=== PATIENT | female | born 1955 | race Caucasian/White ===

== ENCOUNTER 2018-06-30 08:42 | Observation (INO) ==
[2018-06-30] MEDS ORDERED: Acetaminophen 325 MG TABLET PO ONE (08:47)
--- NOTE | 2018-06-30 08:52 | Emergency Department Note ---
Disposition Clinical Impression: Viral syndrome, Elevated troponin Disposition: Admitted As Inpatient Condition: Fair Time of Disposition: 10:41 Weakness HPI - General Stated complaint: flu symptoms Time Seen by Provider: 06/30/18 08:47 Source: patient, EMS Mode of arrival: EMS Limitations: no limitations Nursing Notes Reviewed: Yes Vital Signs Reviewed: Yes - History of Present Illness HPI Narrative: Patient presents to the ED with chief complaint of generalized weakness. States it is been ongoing for about 3 weeks. She also complains of right hip pain. She denies any fever or chills. Denies any chest pain. She has had a productive cough but that is not any different than usual from her baseline e mphysema. She is on 2.5 L of oxygen at all times. Has not been needing more than usual. States she just feels very rundown and tired. She has had decreased appetite and body aches. According to EMS, she had a temperature of 100.6 and was mildly hypoxic, but she was not wearing her oxygen. She states she has a history of emphysema but is otherwise healthy. - Related Data Home Medications Medication Instructions Recorded Confirmed Budesonide/Formoterol 160/4.5 2 puff IH BIDR 07/23/16 08/09/16 [Symbicort 160/4.5] Calcium Carbonate/Vitamin D3 1 each PO DAILY 07/23/16 08/09/16 [Calcium 500 + Vit D Caplet] Cholecalciferol (D-3) [Vitamin D] 1,000 unit PO DAILY 07/23/16 08/09/16 Gabapentin [Neurontin] 300 mg PO TID 07/23/16 08/09/16 Glucosamn/Condroitn/C/Mn/[place] 1 each PO DAILY 07/23/16 08/09/16 [Cvs Glucosamine Chondroit Cplt] Linaclotide [Linzess] 290 mcg PO DAILY 07/23/16 08/09/16 Meloxicam 15 mg PO DAILY 07/23/16 08/09/16 OLANZapine [Zyprexa] 25 mg PO HS 07/23/16 08/09/16 [place]-3/Dha/Epa/Fish Oil [Fish Oil 1 each PO DAILY 07/23/16 08/09/16 1,000 mg Softgel] Terbutaline [Brethine] 2.5 mg PO TID 07/23/16 08/09/16 Trazodone HCl 200 mg PO HS 07/23/16 08/09/16 Bifidobacterium Infantis [Align] 07/11/17 Combivent Respimat Inhal [place] 07/11/17 ROLLATOR 07/11/17 Tizanidine HCl [Zanaflex] 07/11/17 Previous Rx's Medication Instructions Recorded Phenylephrine HCl/Prometh HCl 5 - 10 ml PO QID PRN #180 syrup 07/11/17 [Promethazine-Phenylephrine Syr] Nitrofurantoin (BID) [Macrobid] 100 mg PO BID #20 capsule 12/01/17 Ciprofloxacin [Cipro] 500 mg PO BID #10 tablet 04/05/18 Cyclobenzaprine [Flexeril] 5 mg PO HS #3 tablet 06/21/18 Meloxicam 7.5 mg PO DAILY #7 tablet 06/21/18 predniSONE [PredniSONE] 20 mg PO BID #10 tablet 06/21/18 Allergies Allergy/AdvReac Type Severity Reaction Status Date / Time aripiprazole [From Abilify] AdvReac Hallucinati Verified 06/21/18 12:50 ng Review of Systems: As reviewed in the HPI. All other systems reviewed are negative or normal. Past Medical History - Past Medical History Attestation: Yes The following information was validated with the patient. Source: patient Medical history: Reports: COPD, other Surgical history: Reports: breast surgery, hysterectomy, orthopedic, other Psychiatric history: Reports: bipolar, schizophrenia - Social History Smoking Status: Never smoker Smokeless Tobacco Status: No Alcohol use: Reports: none Drug use: Reports: none Physical Exam CONSTITUTIONAL: [well appearing, alert and in no acute distress] EYES: [EOMI, clear conjunctiva, PERRLA] HENT: [Normocephalic, atraumatic, moist mucus membranes, normal oropharynx] NECK: [normal inspection, full ROM, trachea midline, no obvious swelling] PULMONARY: Rhonchi bilaterally CARDIOVASCULAR: [regular rate, regular rhythm, normal heart sounds, no murmurs, distal extremities are warm and well perfused] GASTROINSTESTINAL: [soft, non-tender, non-rigid, non-distended, no guarding, no rebound, normal bowel sounds] GENITOURINARY/RECTAL: [deferred] NEUROLOGIC: [Alert, oriented x3, normal speech, moves all extremities] EXTREMITIES: [Normal inspection, full ROM, no tenderness, no pedal edema, normal capillary refill] MUSCULOSKELETAL: [no gross deformities, atraumatic] SKIN: [No cyanosis, no diaphoresis, normal color, warm, no rash] PSYCHIATRIC: [normal mood and affect] Course Course Narrative: Patient with mildly elevated troponin, but negative. EKG. X-ray did show right hip arthritis, which would likely be the cause of her pain. Do not think this is ACS. However, her fatigue and exertional weakness. Could be cardiac in nature, so we will admit her for further trending echocardiogram and possible stress test. Vital Signs Temperature 98.3 F 06/30/18 09:10 Pulse Rate 96 06/30/18 09:10 Respiratory Rate 18 06/30/18 09:10 Blood Pressure 139/87 06/30/18 09:10 O2 Sat by Pulse Oximetry 96 06/30/18 09:10 Temperature 98.3 F 06/30/18 09:10 Pulse Rate 96 06/30/18 09:10 Respiratory Rate 18 06/30/18 09:10 Blood Pressure 139/87 06/30/18 09:10 O2 Sat by Pulse Oximetry 96 06/30/18 09:21 Oxygen Delivery Oxygen Delivery Room Air Weakness - Medical Records Medical records reviewed: Yes I reviewed the patient's medical records. - Lab Data Lab results reviewed: Yes I reviewed the patient's lab results. Result diagrams: 06/30/18 09:16 06/30/18 09:16 Lab Results 06/30/18 06/30/18 06/30/18 Range/Units 09:16 09:16 09:16 WBC 3.8 L (4.3-11.1) K/mcL RBC 4.37 (3.82-4.97) M/mcL Hgb 13.5 (11.5-15.4) g/dL Hct 40.9 (35.3-44.9) % MCV 93.6 (83.0-100.0) fL MCH 30.9 (28.0-33.3) pg MCHC 33.0 (31.6-35.5) g/dL RDW 14.0 (11.5-14.5) % Plt Count 183 (140-400) K/mcL MPV 9.3 L (9.4-12.4) fL Immature Gran % 0.3 (0-4) % Seg Neutrophils % 73.3 % Lymphocytes % 15.0 % Monocytes % 10.6 % Eosinophils % 0.0 % Basophils % 0.8 % Neutrophils # 2.8 (1.6-8.9) K/mcL Lymphocytes # 0.6 (0.6-4.6) K/mcL Monocytes # 0.4 (0.0-1.3) K/mcL Eosinophils # 0.0 (0.0-0.6) K/mcL Basophils # 0.0 (0.0-0.2) K/mcL Sodium 141 (136-145) mEq/L Potassium 4.1 (3.5-5.1) mEq/L Chloride 109 H (98-107) mEq/L Carbon Dioxide 26 (23-29) mEq/L BUN 8 (8-23) mg/dL Creatinine 0.78 (0.60-1.20) mg/dL Est GFR ( Amer) > 60 (> 60) Est GFR (Non-Af Amer) > 60 (> 60) BUN/Creatinine Ratio 10 (6-26) Glucose 104 (70-105) mg/dL Calculated Osmolality 291 (280-300) Lactic Acid 0.8 (0.5-2.2) mmol/L Calcium 8.9 (8.6-10.3) mg/dL Creatine Kinase 34 (30-223) Units/L Troponin I 0.05 H* (< 0.04) ng/mL Urine Color (Yellow) Urine Clarity (Clear) Urine pH (5.0-8.0) pH Units Ur Specific [place] (1.010-1.025) Urine Protein (Neg-Trace) mg/dL Urine Glucose (UA) (Normal) mg/dL Urine Ketones (Negative) mg/dL Urine Blood (Negative) Urine Nitrite (Negative) Urine Bilirubin (Negative) Urine Urobilinogen (Normal) mg/dL Ur Leukocyte Esterase (Negative) Ur Culture Indicated? (NO) 06/30/18 Range/Units 09:54 WBC (4.3-11.1) K/mcL RBC (3.82-4.97) M/mcL Hgb (11.5-15.4) g/dL Hct (35.3-44.9) % MCV (83.0-100.0) fL MCH (28.0-33.3) pg MCHC (31.6-35.5) g/dL RDW (11.5-14.5) % Plt Count (140-400) K/mcL MPV (9.4-12.4) fL Immature Gran % (0-4) % Seg Neutrophils % % Lymphocytes % % Monocytes % % Eosinophils % % Basophils % % Neutrophils # (1.6-8.9) K/mcL Lymphocytes # (0.6-4.6) K/mcL Monocytes # (0.0-1.3) K/mcL Eosinophils # (0.0-0.6) K/mcL Basophils # (0.0-0.2) K/mcL Sodium (136-145) mEq/L Potassium (3.5-5.1) mEq/L Chloride (98-107) mEq/L Carbon Dioxide (23-29) mEq/L BUN (8-23) mg/dL Creatinine (0.60-1.20) mg/dL Est GFR ( Amer) (> 60) Est GFR (Non-Af Amer) (> 60) BUN/Creatinine Ratio (6-26) Glucose (70-105) mg/dL Calculated Osmolality (280-300) Lactic Acid (0.5-2.2) mmol/L Calcium (8.6-10.3) mg/dL Creatine Kinase (30-223) Units/L Troponin I (< 0.04) ng/mL Urine Color Yellow (Yellow) Urine Clarity Clear (Clear) Urine pH 8.0 (5.0-8.0) pH Units Ur Specific [place] 1.019 (1.010-1.025) Urine Protein Trace (Neg-Trace) mg/dL Urine Glucose (UA) Normal (Normal) mg/dL Urine Ketones Negative (Negative) mg/dL Urine Blood Negative (Negative) Urine Nitrite Negative (Negative) Urine Bilirubin Negative (Negative) Urine Urobilinogen Normal (Normal) mg/dL Ur Leukocyte Esterase Negative (Negative) Ur Culture Indicated? NO (NO) - Radiology Data Radiology results reviewed: Yes I reviewed the patient's radiology results. - EKG Data EKG attestation: Yes I reviewed and interpreted this EKG. EKG results narrative: Sinus rhythm, rate 87, normal axis, no ischemic change
--- NOTE | 2018-06-30 08:58 | Emergency Department Note ---
Disposition Clinical Impression: Viral syndrome Disposition: Still a Patient General Adult HPI - General Stated complaint: flu symptoms Time Seen by Provider: 06/30/18 08:47 Source: patient, EMS Mode of arrival: EMS Limitations: no limitations Nursing Notes Reviewed: Yes Vital Signs Reviewed: Yes - History of Present Illness HPI Narrative: ED attending attestation note: I examined this patient and my medical decision-making was reviewed with the emergency medicine resident Ochoa Glass. I agree with the documented findings, disposition and treatment plan as described except to the extent set forth below. Briefly: 63-year-old elderly female by EMS for "flulike symptoms". Patient is been feeling increasingly fatigued symptoms for the past several weeks of flulike symptoms. Has not seen a primary care provider Dr. Frausto in about 6 mo nths. She also has atraumatic right hip and knee pain. Does recall falling lives alone but does have family members that live close by to check on her. Patient appears slightly dehydrated and fatigued but otherwise is awake and alert and nontoxic. Patient of flu swab chest x-ray screening labs and EKG. Disposition pending. Pt will get an AP XR pelvis to assess the hip. - Related Data Home Medications Medication Instructions Recorded Confirmed Budesonide/Formoterol 160/4.5 2 puff IH BIDR 07/23/16 08/09/16 [Symbicort 160/4.5] Calcium Carbonate/Vitamin D3 1 each PO DAILY 07/23/16 08/09/16 [Calcium 500 + Vit D Caplet] Cholecalciferol (D-3) [Vitamin D] 1,000 unit PO DAILY 07/23/16 08/09/16 Gabapentin [Neurontin] 300 mg PO TID 07/23/16 08/09/16 Glucosamn/[place]roitn/C/Mn/[place] 1 each PO DAILY 07/23/16 08/09/16 [Cvs Glucosamine Chondroit Cplt] Linaclotide [Linzess] 290 mcg PO DAILY 07/23/16 08/09/16 Meloxicam 15 mg PO DAILY 07/23/16 08/09/16 OLANZapine [Zyprexa] 25 mg PO HS 07/23/16 08/09/16 [place]-3/Dha/Epa/Fish Oil [Fish Oil 1 each PO DAILY 07/23/16 08/09/16 1,000 mg Softgel] Terbutaline [Brethine] 2.5 mg PO TID 07/23/16 08/09/16 Trazodone HCl 200 mg PO HS 07/23/16 08/09/16 Bifidobacterium Infantis [Align] 07/11/17 Combivent Respimat Inhal [place] 07/11/17 ROLLATOR 07/11/17 Tizanidine HCl [Zanaflex] 07/11/17 Previous Rx's Medication Instructions Recorded Phenylephrine HCl/Prometh HCl 5 - 10 ml PO QID PRN #180 syrup 07/11/17 [Promethazine-Phenylephrine Syr] Nitrofurantoin (BID) [Macrobid] 100 mg PO BID #20 capsule 12/01/17 Ciprofloxacin [Cipro] 500 mg PO BID #10 tablet 04/05/18 Cyclobenzaprine [Flexeril] 5 mg PO HS #3 tablet 06/21/18 Meloxicam 7.5 mg PO DAILY #7 tablet 06/21/18 predniSONE [PredniSONE] 20 mg PO BID #10 tablet 06/21/18 Allergies Allergy/AdvReac Type Severity Reaction Status Date / Time aripiprazole [From Abilify] AdvReac Hallucinati Verified 06/21/18 12:50 ng Past Medical History - Past Medical History Medical history: Reports: COPD, other Surgical history: Reports: breast surgery, hysterectomy, orthopedic, other Psychiatric history: Reports: bipolar, schizophrenia - Social History Smoking Status: Never smoker Smokeless Tobacco Status: No Alcohol use: Reports: none Drug use: Reports: none Physical Exam - General Limitations: no limitations
[2018-06-30 09:35] LABS: Basophils % 0.8 %; Hematocrit 40.9 % (35.3-44.9); Hemoglobin 13.5 g/dL (11.5-15.4); Immature Granulocytes % 0.3 % (0-4); Lymphocytes # 0.6 K/mcL (0.6-4.6); Mean Corpuscular Hemoglobin 30.9 pg (28.0-33.3); Mean Corpuscular Volume 93.6 fL (83.0-100.0); Mean Platelet Volume 9.3 fL (9.4-12.4); Monocytes # 0.4 K/mcL (0.0-1.3); Monocytes % 10.6 %; Neutrophils # 2.8 K/mcL (1.6-8.9); Platelet Count 183 K/mcL (140-400); Red Blood Count 4.37 M/mcL (3.82-4.97); Segmented Neutrophils % 73.3 %
[2018-06-30 09:59] LABS: BUN/Creatinine Ratio 10 (6-26); Blood Urea Nitrogen 8 mg/dL (8-23); Calcium 8.9 mg/dL (8.6-10.3); Carbon Dioxide 26 mEq/L (23-29); Chloride 109 mEq/L (98-107); Creatine Kinase 34 Units/L (30-223); Glucose 104 mg/dL (70-105); Osmolality,Calculated 291 (280-300); Potassium 4.1 mEq/L (3.5-5.1); Sodium 141 mEq/L (136-145); eGFR For Non-African Americans > 60 (> 60)
[2018-06-30 10:02] LABS: Troponin I 0.05 ng/mL (< 0.04)
[2018-06-30 10:05] LABS: Bilirubin,Urine Negative (Negative); Blood,Urine Negative (Negative); Clarity,Urine Clear (Clear); Color,Urine Yellow (Yellow); Glucose,Urine (UA) Normal (Normal); Ketones,Urine Negative (Negative); Leukocyte Esterase,Urine Negative (Negative); Nitrite,Urine Negative (Negative); Protein,Urine Trace mg/dL (Neg-Trace); Specific Gravity,Urine 1.019 (1.010-1.025); Urobilinogen,Urine Normal (Normal)
[2018-06-30] MEDS ORDERED: Aspirin 81 MG TAB.CHEW PO ONE (10:09)
[2018-06-30] MEDS ORDERED: Naloxone 0.4 MG/ML INJ IVP PRN (11:40)
[2018-06-30] MEDS ORDERED: Ipratropium/Albuterol Neb 3 ML IH PRN (11:44)
[2018-06-30] MEDS ORDERED: tiZANidine 4 MG TABLET PO PRN (11:45)
--- NOTE | 2018-06-30 12:48 | Internal Med History&Physical ---
Date of Encounter: 06/30/18 Time of Encounter: 11:00 Internal Medicine - H&P: HPI Chief complaint: Virus symptoms Admitted From: Home Plans for Post Hospital Care: Home History of present illness: Ms. Saleh is a 63 year old female present to ER for sick and virus symptoms. Past medical history is significant for COPD on home oxygen. Patient said she has virus infection symptoms for about several weeks. Patient complaining of running nose with no scars congestion. Denies a fever. Has chronic cough. Patient denies chest pain or shortness of breath. Patient has no nausea or vomiting. Patient denies urination symptoms. Patient has no leg swelling. Patient has exertional intolerance. In the emergency room, chest x- ray and EKG unremarkable, however, patient was found elevated troponin. Patient was admitted for further management. Past Med Surg Social Fam HX - Past Medical History Medical history: arthritis, COPD, other Additional medical history: osteopenia, cataracts Psychiatric history: bipolar, schizophrenia - Past Surgical History Surgical History: breast surgery, hysterectomy, orthopedic, other Additional surgical history: vocal cord removal - Social History Smoking Status: Current every day smoker Packs per day: 1 Smokeless Tobacco Status: No Alcohol use: none Drug use: none - Family History Mother Living Status: Age at : 73 Cause of : fall Father Living Status: Age at : 73 Cause of : pancreatic Hx Family Endocrine Disorder: Yes (DM) Internal Medicine - H&P: Meds Gabapentin [Neurontin] 300 mg PO BID 07/23/16 [History] Glucosamn/Condroitn/C/Mn/[place] [Cvs Glucosamine Chondroit Cplt] 1 cap PO TID 07/23/16 [History] Meloxicam 15 mg PO DAILY 07/23/16 [History] OLANZapine [Zyprexa] 5 mg PO HS 07/23/16 [History] [place]-3/Dha/Epa/Fish Oil [Fish Oil 1,000 mg Softgel] 1 each PO BID 07/23/16 [History] Terbutaline [Brethine] 2.5 mg PO TID 07/23/16 [History] Trazodone HCl 200 mg PO HS 07/23/16 [History] Bifidobacterium Infantis [Align] 4 mg PO DAILY 07/11/17 [History] Tizanidine HCl [Zanaflex] 4 mg PO TID PRN 07/11/17 [History] Albuterol Sulfate [Ventolin Hfa] 2 puff IH Q6H PRN 06/30/18 [History] Calcium Carbonate [Calcium] 500 mg PO DAILY 06/30/18 [History] Cholecalciferol (Vitamin D3) [Vitamin D] 800 unit PO BID 06/30/18 [History] Guaifenesin [Mucinex] 600 mg PO BID 06/30/18 [History] Linaclotide [Linzess] 290 mg PO DAILY 06/30/18 [History] OLANZapine [Zyprexa] 20 mg PO HS 06/30/18 [History] Omeprazole [PriLOSEC] 20 mg PO DAILY 06/30/18 [History] Tiotropium [place] [Spiriva Respimat] 2 puff IH DAILY 06/30/18 [History] Allergy/AdvReac Type Severity Reaction Status Date / Time aripiprazole [From Abilify] AdvReac Hallucinati Verified 06/21/18 12:50 ng All Systems PM: A 10-system review of systems was performed and is negative for pertinent findings except as documented above in the HPI. - Constitutional Vitals: Temp Pulse Resp BP Pulse Ox 98.1 F 68 16 115/70 93 06/30/18 12:11 06/30/18 12:11 06/30/18 12:11 06/30/18 12:11 06/30/18 12:11 Exam: Pt is AAO x 3, in NAD HEENT: NC/AT, PERRL Neck: Supple, no JVD, no LAD Lungs: Coarse breath sounds bilaterally, scattered rhonchi bilaterally. Heart: S1S2, RRR Abd: Soft, nontender, BS present Ext: ROM wnl, no pedal edema Neuro: No focal deficit Internal Med - H&P Results - Labs CBC & Chem 7: 06/30/18 09:16 06/30/18 09:16 Labs: Short CBC 06/30/18 Range/Units 09:16 WBC 3.8 L (4.3-11.1) K/mcL Hgb 13.5 (11.5-15.4) g/dL Hct 40.9 (35.3-44.9) % Plt Count 183 (140-400) K/mcL Neutrophils # 2.8 (1.6-8.9) K/mcL BMP 06/30/18 09:16 Sodium 141 Potassium 4.1 Chloride 109 H Carbon Dioxide 26 BUN 8 Creatinine 0.78 Glucose 104 Calcium 8.9 Cardiac Enzymes 06/30/18 Range/Units 09:16 Troponin I 0.05 H* (< 0.04) ng/mL Urine 06/30/18 Range/Units 09:54 Urine Color Yellow (Yellow) Urine Clarity Clear (Clear) Urine pH 8.0 (5.0-8.0) pH Units Ur Specific [place] 1.019 (1.010-1.025) Urine Protein Trace (Neg-Trace) mg/dL Urine Glucose (UA) Normal (Normal) mg/dL - Impressions ITS Impressions Chest X-Ray 06/30/18 08:47 IMPRESSION: No acute cardiopulmonary process. D/ / Eder Chatterjee MD / Eder Chatterjee MD Interpreting Provider: Eder Chatterjee MD Knee X-Ray 06/30/18 09:14 IMPRESSION: No acute fracture or dislocation in the right knee. Mild tricompartmental degenerative changes. D/ / Micheal Richards MD / Micheal Richards MD Interpreting Provider: Micheal Richards MD Pelvis X-Ray 06/30/18 09:14 IMPRESSION: 1. Severe arthritic changes right hip. No acute fracture. D/ / Mathew Jolly MD / Mathew Jolly MD Interpreting Provider: Mathew Jolly MD - Assessment and Plan (1) COPD exacerbation Current Visit: Yes Status: Acute Assessment and plan: Patient has exertional intolerance. History of COPD. Bilateral rhonchi. Consider mild COPD exacerbation. Suspect worsening by viral infection. - Place patient on steroid and bronchodilator - Respiratory viral panel, patient has negative influenza A and B test - Continue supportive treatment and symptomatic treatment (2) DVT prophylaxis Current Visit: Yes Status: Acute Assessment and plan: Heparin sc (3) Elevated troponin Current Visit: Yes Status: Acute Assessment and plan: Patient denies chest pain. There is no significant ST-T change on EKG. Troponin 0.04. - We will place patient on continuous cardiac monitoring - Track 3 sets of troponin - Echocardiogram - BNP (4) Viral syndrome Current Visit: Yes Status: Acute Assessment and plan: Management as above - Time Spent With Patient Total time spent is greater than 50% in coordination of care (as documented) at patient's floor/unit and/or counseling patient: 40 minutes Greater than 35 minutes
[2018-06-30] MEDS: predniSONE 20 MG TABLET PO SCH (14:24)
[2018-06-30 15:35] LABS: Adenovirus Not Detected (Not Detect); Coronavirus 229E Not Detected (Not Detect); Coronavirus HKU1 Not Detected (Not Detect); Coronavirus NL63 Not Detected (Not Detect); Coronavirus OC43 Not Detected (Not Detect); Human Metapneumovirus DETECTED (Not Detect); Human Rhinovirus/Enterovirus Not Detected (Not Detect); Influenza A Subtype 2009 H1 Not Detected (Not Detect); Influenza A Untypeable Not Detected (Not Detect); Influenza B Not Detected (Not Detect); Parainfluenza Virus 1 Not Detected (Not Detect); Parainfluenza Virus 2 Not Detected (Not Detect); Parainfluenza Virus 3 Not Detected (Not Detect); Parainfluenza Virus 4 Not Detected (Not Detect)
[2018-06-30 15:36] LABS: Bordetella Pertussis Not Detected (Not Detect); Chlamydophila pneumoniae Not Detected (Not Detect); Mycoplasma pneumoniae Not Detected (Not Detect); Respiratory Syncytial Virus Not Detected (Not Detect)
[2018-06-30] MEDS: Ipratropium/Albuterol Neb 3 ML IH SCH ×2 (15:57→21:18)
[2018-06-30] MEDS: Acetaminophen 325 MG TABLET PO PRN (16:14)
[2018-06-30] MEDS: *HR* Heparin 5,000 UNIT/ML VIAL SQ SCH (16:17)
[2018-06-30] MEDS: Gabapentin 300 MG CAPSULE PO SCH (20:20)
[2018-06-30] MEDS: (Omega-3/Dha/Epa/Fish Oil [Fish Oil 1,000 Mg Softgel] PO SCH (20:22)
[2018-06-30] MEDS ORDERED: traZODone 50 MG TABLET PO SCH (21:00)
[2018-06-30] MEDS ORDERED: OLANZapine 5 MG TAB.RAPDIS PO SCH (21:00)
[2018-06-30] MEDS ORDERED: OLANZapine 10 MG TAB.RAPDIS PO SCH (21:00)
[2018-06-30] MEDS: Budesonide/Formoterol 160/4.5 1 PUFF INH IH SCH (21:18)
[2018-07-01] MEDS: Ipratropium/Albuterol Neb 3 ML IH SCH ×3 (03:39→15:39)
[2018-07-01 05:11] LABS: Basophils % 0.2 %; Hematocrit 40.3 % (35.3-44.9); Hemoglobin 13.3 g/dL (11.5-15.4); Immature Granulocytes % 0.4 % (0-4); Lymphocytes # 0.2 K/mcL (0.6-4.6); Lymphocytes % 4.9 %; Mean Corpuscular Hemoglobin 30.8 pg (28.0-33.3); Mean Corpuscular Volume 93.3 fL (83.0-100.0); Mean Platelet Volume 9.4 fL (9.4-12.4); Monocytes # 0.2 K/mcL (0.0-1.3); Monocytes % 5.1 %; Platelet Count 158 K/mcL (140-400); Red Blood Count 4.32 M/mcL (3.82-4.97); Segmented Neutrophils % 89.4 %
[2018-07-01 05:31] LABS: BUN/Creatinine Ratio 21 (6-26); Blood Urea Nitrogen 15 mg/dL (8-23); Calcium 8.5 mg/dL (8.6-10.3); Carbon Dioxide 27 mEq/L (23-29); Chloride 108 mEq/L (98-107); Chol/HDL Ratio 2.4 (0-4.9); Cholesterol 125 mg/dL (< 200); Glucose 183 mg/dL (70-105); HDL Cholesterol 53 mg/dL (40-59); LDL Cholesterol,Calculated 63 mg/dL (0-99); Magnesium 2.1 mg/dL (1.6-2.6); Osmolality,Calculated 300 (280-300); Potassium 3.8 mEq/L (3.5-5.1); Sodium 142 mEq/L (136-145); Triglycerides 44 mg/dL (< 150); eGFR For Non-African Americans > 60 (> 60)
[2018-07-01] MEDS: *HR* Heparin 5,000 UNIT/ML VIAL SQ SCH (05:45)
[2018-07-01] MEDS: Acetaminophen 325 MG TABLET PO PRN ×2 (05:45→12:05)
[2018-07-01 07:29] VITALS: BP 112/73
[2018-07-01] MEDS ORDERED: LINACLOTIDE 290 MG PO SCH (09:00)
[2018-07-01] MEDS ORDERED: Cholecalciferol (D-3) 1,000 UNIT TABLET PO SCH (09:00)
[2018-07-01] MEDS: predniSONE 20 MG TABLET PO SCH (09:02)
[2018-07-01] MEDS: Gabapentin 300 MG CAPSULE PO SCH (09:02)
[2018-07-01] MEDS: (Omega-3/Dha/Epa/Fish Oil [Fish Oil 1,000 Mg Softgel] PO SCH (09:10)
[2018-07-01] MEDS: Budesonide/Formoterol 160/4.5 1 PUFF INH IH SCH (09:48)
--- NOTE | 2018-07-01 11:33 | Discharge Summary ---
- NOTES TO OUTPATIENT PROVIDER Notes to Outpatient Provider: f/u with PCP in one week. Please quit smoking. Date of Encounter: 07/01/18 Time of Encounter: 11:28 - Discharge Diagnosis (1) Viral syndrome Priority: Primary Status: Acute (2) Acute bronchitis Priority: Primary Status: Acute Qualifiers: Bronchitis organism: unspecified organism Qualified Code(s): J20.9 - Acute bronchitis, unspecified (3) Elevated troponin Priority: Secondary Status: Acute (4) COPD exacerbation Priority: Secondary Status: Acute (5) DVT prophylaxis Priority: Secondary Status: Acute Hospital course: Ms. Saleh is a 63 year old female with known past medical history of chronic tobacco dependence, COPD, chronic hypoxic resp failure on 2 L home oxygen dependent pt presented to ER with progressively worsening shortness of breath, cough with expectoration. Her resp viral panel came back as positive for human meta pneumo virus. In the emergency room, chest x-ray and EKG unremarkable, however, patient was found elevated troponin. Patient was admitted for further management. Troponin slightly elevated at 0.05 due to demand ischemia. She does not have any acute ischemic changes on EKG. She denied any chest pain. Patient was admitted in the hospital and started on steroids and frequent bronchodilator therapy as well as Symbicort. Patient stated she is feeling better today. Her SPo2 @ 92/Ra at resting. She does use 2 lit oxygen at home with ambulation and at night. I did spiritual counselor the patient to quit smoking. Will discharge her home in a stable condition today - Time Spent with Patient Total time spent providing and/or coordinating discharge services: - Discharge Medications Prescriptions: New Budesonide/Formoterol 160/4.5 [Symbicort 160/4.5] 2 puff IH BIDR #1 inh Doxycycline Hyclate 100 mg PO BID #10 tablet predniSONE [PredniSONE] 40 mg PO DAILY #10 tablet Continue Gabapentin [Neurontin] 300 mg PO BID OLANZapine [Zyprexa] 5 mg PO HS Trazodone HCl 200 mg PO HS Terbutaline [Brethine] 2.5 mg PO TID Meloxicam 15 mg PO DAILY Glucosamn/Condroitn/C/Mn/[place] [Cvs Glucosamine Chondroit Cplt] 1 cap PO TID [place]-3/Dha/Epa/Fish Oil [Fish Oil 1,000 mg Softgel] 1 each PO BID Tizanidine HCl [Zanaflex] 4 mg PO TID PRN PRN Reason: Spasms Bifidobacterium Infantis [Align] 4 mg PO DAILY OLANZapine [Zyprexa] 20 mg PO HS Linaclotide [Linzess] 290 mg PO DAILY Albuterol Sulfate [Ventolin Hfa] 2 puff IH Q6H PRN PRN Reason: Shortness Of Breath Guaifenesin [Mucinex] 600 mg PO BID Calcium Carbonate [Calcium] 500 mg PO DAILY Omeprazole [PriLOSEC] 20 mg PO DAILY Cholecalciferol (Vitamin D3) [Vitamin D3] 800 unit PO BID Tiotropium [place] [Spiriva Respimat] 2 puff IH DAILY Home Medications: Gabapentin [Neurontin] 300 mg PO BID 07/23/16 [History] Glucosamn/[place]n/C/Mn/[place] [Cvs Glucosamine Chondroit Cplt] 1 cap PO TID 07/23/16 [History] Meloxicam 15 mg PO DAILY 07/23/16 [History] OLANZapine [Zyprexa] 5 mg PO HS 07/23/16 [History] [place]-3/Dha/Epa/Fish Oil [Fish Oil 1,000 mg Softgel] 1 each PO BID 07/23/16 [History] Terbutaline [Brethine] 2.5 mg PO TID 07/23/16 [History] Trazodone HCl 200 mg PO HS 07/23/16 [History] Bifidobacterium Infantis [Align] 4 mg PO DAILY 07/11/17 [History] Tizanidine HCl [Zanaflex] 4 mg PO TID PRN 07/11/17 [History] Albuterol Sulfate [Ventolin Hfa] 2 puff IH Q6H PRN 06/30/18 [History] Calcium Carbonate [Calcium] 500 mg PO DAILY 06/30/18 [History] Cholecalciferol (Vitamin D3) [Vitamin D3] 800 unit PO BID 06/30/18 [History] Guaifenesin [Mucinex] 600 mg PO BID 06/30/18 [History] Linaclotide [Linzess] 290 mg PO DAILY 06/30/18 [History] OLANZapine [Zyprexa] 20 mg PO HS 06/30/18 [History] Omeprazole [PriLOSEC] 20 mg PO DAILY 06/30/18 [History] Tiotropium [place] [Spiriva Respimat] 2 puff IH DAILY 06/30/18 [History] Budesonide/Formoterol 160/4.5 [Symbicort 160/4.5] 2 puff IH BIDR #1 inh 07/01/18 [Rx] Doxycycline Hyclate 100 mg PO BID #10 tablet 07/01/18 [Rx] Nicotine Patch [Nicoderm] 21 mg TD DAILY #30 patch.td24 07/01/18 [Rx] predniSONE [PredniSONE] 40 mg PO DAILY #10 tablet 07/01/18 [Rx] Allergies/Adverse Reactions: Allergy/AdvReac Type Severity Reaction Status Date / Time aripiprazole [From Abilify] AdvReac Hallucinati Verified 06/21/18 12:50 ng Date of admission: 06/30/18 10:48 Primary care physician: Gabriel Palencia MD Consults: 07/01/18 08:18 Consult to Nurse Navigator [CONS] Routine Comment: COPD - Constitutional Vitals: Temp Pulse Resp BP Pulse Ox 98.3 F 102 16 112/73 90 07/01/18 07:28 07/01/18 07:28 07/01/18 09:48 07/01/18 07:28 07/01/18 09:48 General appearance: Present: A&O X 3, no acute distress, answers questions appropriately Exam: Gen: Alert, awake, Oriented to time,place and person Chest: Diminished breath sounds B/L, Mild to moderate wheezing, No crackles, No rales, no ronchi Heart: S1S2+ RRR No murmurs Abd: Soft, NT, BS +, No organomegaly Ext: No edema, pulses are palpable, No calf tenderness Neuro : Benign findings Skin: No rash. - Patient Status Disposition: Home, Self-Care Condition: Good Overall status at discharge: patient is back to baseline - Discharge Instructions Follow Up With: Gabriel Palencia MD [Primary Care Provider] - Forms: ED Satisfaction Letter - Diet and Activity Activity: increase activity as tolerated, wear oxygen at night (with ambulation too) Diet: low salt diet
--- NOTE | 2018-07-05 07:50 | Electrocardiograph Report ---
[place] [id number] Test Date: 2018-06-30 Pat Name: Emmy Saleh Department: EXAM1 Room: 3B13 Gender: F Rivet Bucker: : [id number] Requested By: Ochoa Glass Order Number: [id number] Reading MD: Ld Henderson Measurements Intervals [place] Rate: 87 P: 61 IA: 136 QRS: 74 QRSD: 90 T: 69 QT: 383 QTc: 461 Interpretive Statements Sinus rhythm Electronically Signed On 07-05-2018 7:48:47 EDT by Ld Henderson
== END 2018-07-01 16:34 | disposition home or self-care (01) ==
LOC: EMEROOARM 08:42 → 3BNU 08:42
PROVIDERS: ADMIT Internal Medicine; ATTEND Internal Medicine

== ENCOUNTER 2018-12-12 09:53 | Inpatient (IN) ==
--- NOTE | 2018-12-12 09:53 | Anesthesia Evaluation PreOp ---
Date of Encounter: 12/12/18 Time of Encounter: 10:07 - Past History Planned Operation: robotic left upper lobectomy Cardiac History: Denies any Significant Hx Pulmonary History: Smoker (45 years, plus chewing tabacco), COPD (emphysema, home oxgyen prn (when worn out) PFT's obstruction FEV1 1.39 increases to1.66 after bronchodilators) EMT INTERMEDIATE History: Other (bipolar, schizophrenia) Other Medical History: Denies Any Significant HX Anesthesia History: No Prior Anesthetic Complications, Past Anesthesia (rotator cuff, basal cell carcinoma, total hysterectomy, ankle, nodules removed from vocal cords, dental surgery, 10/02 left total shoulder) : No Alcohol Use: none Drug use: none Medications and Allergies Gabapentin [Neurontin] 300 mg PO BID 07/23/16 [History] Glucosamn/Cond[place]n/C/Mn/[place] [[facility] Glucosamine Chondroit Cplt] 1 cap PO TID 07/23/16 [History] OLANZapine [Zyprexa] 5 mg PO HS 07/23/16 [History] [place]-3/Dha/Epa/Fish Oil [Fish Oil 1,000 mg Softgel] 1 each PO BID 07/23/16 [History] Terbutaline [Brethine] 2.5 mg PO TID 07/23/16 [History] Bifidobacterium Infantis [Align] 4 mg PO DAILY 07/11/17 [History] Tizanidine HCl [Zanaflex] 4 mg PO TID PRN 07/11/17 [History] Albuterol Sulfate [Ventolin Hfa] 2 puff IH Q6H PRN 06/30/18 [History] Calcium Carbonate [Calcium] 500 mg PO BID 06/30/18 [History] Cholecalciferol (Vitamin D3) [Vitamin D3] 800 unit PO BID 06/30/18 [History] Guaifenesin [Mucinex] 600 mg PO BID 06/30/18 [History] OLANZapine [Zyprexa] 20 mg PO HS 06/30/18 [History] Omeprazole [PriLOSEC] 20 mg PO DAILY 06/30/18 [History] Tiotropium [place] [Spiriva Respimat] 2 puff IH DAILY 06/30/18 [History] Budesonide/Formoterol 160/4.5 [Symbicort 160/4.5] 2 puff IH BIDR #1 inh 07/01/18 [Rx] Linaclotide [Linzess] 145 mcg PO DAILY 12/12/18 [History] Trazodone HCl 200 mg PO HS 12/12/18 [History] Allergy/AdvReac Type Severity Reaction Status Date / Time aripiprazole [From Abilify] AdvReac Hallucinati Verified 12/12/18 10:15 ng - Meds/Allergy Pre-op Review Medications Reviewed: Yes Allergies Reviewed: Yes Beta Blockers on Current Med List: No Anesthesia Results - Labs Laboratory Tests 12/10/18 12/10/18 12/10/18 13:17 13:17 13:17 Hgb 14.0 Hct 42.8 Plt Count 222 PT 10.6 APTT 32.9 Sodium 140 Potassium 4.4 Chloride 107 Carbon Dioxide 25 BUN 17 Creatinine 0.92 Glucose 146 H - Imaging EKG: report reviewed, image reviewed Anesthesia Exam O2 Sat Height 1.73 m Weight 73.936 kg - HEENT Pupil (Motor): Pupils equal, EOMI Mallampati: II Teeth: Missing Oral Opening: Greater than 3 - EMT INTERMEDIATE LOC: Oriented EMT INTERMEDIATE Motor: Normal RUE, Normal LUE, Normal RLE, Normal LLE, Normal Face EMT INTERMEDIATE Sensory: Normal: RUE, LUE, RLE, LLE, Face - Cardiac Rhythm: Regular Murmur: None JVD: No - Pulmonary Breath Sounds: bilateral Clear Respiratory Effort: Symmetrical - Additional Findings abg ordered. T&C 2 PRBC ordered Anesthesia Assess/Plan ASA Score: 3 Level of consciousness: Cooperative, Oriented Anesthetic Plan: General Monitoring Plan: Standard Monitors Recovery Plan: PACU
[2018-12-12] MEDS ORDERED: *HR* Propofol 200 MG/20 ML VIAL IVP ONE (10:05)
[2018-12-12] MEDS ORDERED: *HR* Midazolam HCl 2 MG/2 ML VIAL ONE (10:05)
[2018-12-12] MEDS ORDERED: *HR* FentaNYL (PF) 100 MCG/2 ML VIAL ONE ×2 (10:05→11:47)
--- NOTE | 2018-12-12 10:05 | History & Physical Report ---
Date of Encounter: 12/12/18 Time of Encounter: 10:05 24 Hour HP Update - Instructions Instructions: If the History and Physical is less than 30 days old and was completed prior to A.M. admission and or procedure and has NOT been updated on calendar day of procedure please complete this update prior to performing procedure. - Update Patient reports changes in Medical Condition: No Changes in examination, assessment, or condition: No Changes in Medication: No Preop tests/diagnostics Reviewed: Yes Pre-Op MRSA Screen: Negative Surgery Remains Indicated: Yes Consent for Planned Operative Procedure(s) Verified: Yes - Pre-Operative Checklist Preoperative Checklist Indicated: Yes Prophylactic Antibiotic Ordered: Yes Home Medications Include Beta Riya: No Beta Riya Taken Today (Day of Surgery): No Beta Riya Taken Yesterday (Day Prior to Surgery): No Is VTE Prophylaxis Indicated?: Yes
[2018-12-12] MEDS ORDERED: Lidocaine -MPF 2% 2 ML VIAL ONE (10:06)
[2018-12-12] MEDS ORDERED: Lidocaine HCL 4 ML Topical Solution (Laryng-O-Jet Kit Sterile Pak) TP ONE (10:06)
[2018-12-12] MEDS ORDERED: Dexamethasone 4 MG/ML VIAL ONE (10:06)
[2018-12-12] MEDS ORDERED: *HR* Rocuronium Bromide 50 MG/5 ML VIAL ONE (10:06)
[2018-12-12] MEDS ORDERED: *HR* Meperidine 25 MG/ML SYRINGE IVP PRN (10:13)
[2018-12-12] MEDS ORDERED: Ondansetron ODT 4 MG TAB.RAPDIS SL ONE (10:13)
[2018-12-12] MEDS ORDERED: *HR* OxyCODONE Immed Rel 5 MG TABLET PO PRN (10:13)
[2018-12-12] MEDS ORDERED: *HR* Promethazine 25 MG/ML VIAL IVP PRN (10:13)
[2018-12-12] MEDS ORDERED: diazePAM 5 MG TABLET PO ONE (10:13)
[2018-12-12] MEDS ORDERED: *HR* HYDROmorphone (PF) 1 MG/ML SYRINGE IVP PRN (10:13)
[2018-12-12] MEDS ORDERED: Acetaminophen IV 1,000 MG/100 ML INFUS..BTL IVPB ONE (10:13)
[2018-12-12] MEDS ORDERED: Ringers Solution, Lactated 1,000 ML IVC SCH ×3 (10:15→10:30)
[2018-12-12] MEDS ORDERED: CeFAZolin Syr 2,000MG/20 ML 2,000 MG/20 ML SYRINGE IVPB ONE (10:25)
[2018-12-12] MEDS ORDERED: Celecoxib 200 MG CAPSULE PO ONE (10:26)
[2018-12-12] MEDS ORDERED: Amiodarone Premix 150 MG/100 ML BAG IVPB ONE (11:54)
[2018-12-12] MEDS ORDERED: Amiodarone Premix 360 MG/200 ML BAG IVC ONE ×2 (11:57→14:34)
[2018-12-12] MEDS ORDERED: Amiodarone Premix 360 MG/200 ML BAG IVC SCH (12:15)
[2018-12-12] MEDS ORDERED: Mannitol 20% 100 GM/500 ML IV.SOLN IVC ONE (12:19)
[2018-12-12] MEDS ORDERED: *HR* Phenylephrine 10 MG/ML VIAL ONE (12:51)
[2018-12-12] MEDS ORDERED: *HR* HYDROMORPHONE 2 MG/ML VIAL ONE (13:32)
--- NOTE | 2018-12-12 13:49 | Operative Note ---
Date of procedure: 12/12/18 Pre-op diagnosis: c34.12 Post-op diagnosis: same Procedure: bronch with asp, robotic left upper lobe wedge/lobecotmy/lymph node dissection Anesthesia: GETA Local Anesthetics: 0.5% Sensorcaine HCL SubQ (cc) Surgeon: Marco Antonio Olmedo Was there an payroll and benefits assistant present: No Estimated blood loss (cc): 10 Specimen: wedge upper lobe, lobe, nodes [id number] Condition: stable Disposition: PACU Procedure in Detail: The patient was brought to the operating room placed on the operating table in the supine position. After undergoing general anesthesia with sequential compressive devices on bilateral lower extremities and perioperative antibiotics on board bronchoscopy was performed and copious thin clear secretions aspirated from the tracheobronchial tree until clear. The endotracheal tube was positioned in its correct anatomic position for single lung ventilation and the mucosa throughout the tracheobronchial tree was clear no evidence of endoluminal metastasis obstruction or. Patient was placed on the operating room table in the right pelvic pad all pressure points prepped, and draped in sterile fashion. 4 thoracoscopy port placed robot was docked. Small areas of scar tissue taken down within the chest and then intraoperative wedge resection of the left upper lobe was performed demonstrating a non-small cell lung cancer consistent with adenocarcinoma. A formal lobectomy was performed taking down the artery, vein, fissure, and completing bronchus with the Covidien staplers. The stasis and pneumostasis. The lobectomy was sent for permanent section. The inferior pulmonary ligament was mobilized and lymph nodes removed from and sent to pathology from 5, 6, 9, 11, 12. Paravertebral nerve blocks performed. 28- [place] chest tube placed through the most anterior thoracoscopy incision and secured in place with a 2 Ethibond suture. Remaining incisions are closed with #1 Vicryl 0 Vicryl and 4-0 Monocryl subcuticular stitch with dressings consisting of Steri-Strips and sterile gauze. Patient was extubated taken to the recovery room breathing spontaneously and hemodynamically stable.
--- NOTE | 2018-12-12 14:15 | Anesthesia Evaluation Post Op ---
Date of Encounter: 12/12/18 Time of Encounter: 14:14 - Vital Signs Vital Signs: Vital Signs/O2 Sat, Most Current Temp Pulse Resp BP Pulse Ox 97.8 F 83 14 121/75 94 12/12/18 13:42 12/12/18 14:02 12/12/18 14:02 12/12/18 14:02 12/12/18 14:02 - Lungs Lungs: Clear Ascult./Percussion - Airway Airway: Non-obstructed - Cardiovascular Regular Rate, Baseline Rhythm (on amiodarone drip for svt intraop) - Mental Status Mental Status: Alert & Oriented, Answers Appropriately - Pain Pain Scale: 0 - Nausea Vomiting Nausea Vomiting: Not Present - Hydration Hydration: Ice chips - Discharge PostOp Status: Transfer Patient to floor
[2018-12-12] MEDS ORDERED: Naloxone 0.4 MG/ML INJ IVP PRN (14:34)
[2018-12-12] MEDS ORDERED: Ondansetron 4 MG/2 ML VIAL IVP PRN (14:34)
[2018-12-12] MEDS: Gabapentin 300 MG CAPSULE PO SCH ×2 (15:40→21:35)
[2018-12-12] MEDS: 0.9 % Sodium Chloride 1,000 ML IVC SCH (15:45)
[2018-12-12] MEDS: *HR* Heparin 5,000 UNIT/ML VIAL SQ SCH ×2 (15:46→21:36)
[2018-12-12] MEDS: Ipratropium/Albuterol Neb 3 ML IH SCH ×2 (16:20→20:38)
[2018-12-12] MEDS: *HR* HYDROcodone/Acet 5/325 mg TABLET PO PRN ×2 (16:23→21:54)
[2018-12-12] MEDS: Metoprolol XL (24 HR) Succ 25 MG TAB.ER.24H PO SCH (17:19)
[2018-12-12] MEDS: Ketorolac 15 MG/ML VIAL IVP SCH (17:19)
[2018-12-12] MEDS: Amiodarone Premix 360 MG/200 ML BAG IVC SCH (18:52)
[2018-12-12] MEDS: OLANZapine 10 MG TAB.RAPDIS PO SCH (21:35)
[2018-12-12] MEDS: OLANZapine 5 MG TAB.RAPDIS PO SCH (21:35)
[2018-12-12] MEDS: Famotidine 20 MG TABLET PO SCH (21:35)
[2018-12-12] MEDS: Sennosides/Docusate Sodium TABLET PO SCH (21:35)
[2018-12-13] MEDS: Ipratropium/Albuterol Neb 3 ML IH SCH ×7 (00:15→23:49)
[2018-12-13] MEDS: Ketorolac 15 MG/ML VIAL IVP SCH ×5 (00:39→23:03)
[2018-12-13] MEDS: *HR* Heparin 5,000 UNIT/ML VIAL SQ SCH ×3 (05:10→23:02)
[2018-12-13] MEDS: 0.9 % Sodium Chloride 1,000 ML IVC SCH (05:10)
[2018-12-13] MEDS: *HR* HYDROcodone/Acet 5/325 mg TABLET PO PRN ×2 (05:11→20:00)
[2018-12-13] MEDS: Amiodarone Premix 360 MG/200 ML BAG IVC SCH (05:16)
[2018-12-13 05:36] LABS: Hemoglobin 13.4 g/dL (11.5-15.4); Mean Corpuscular HGB Conc 31.9 g/dL (31.6-35.5); Mean Corpuscular Hemoglobin 31.5 pg (28.0-33.3); Mean Corpuscular Volume 98.6 fL (83.0-100.0); Mean Platelet Volume 9.5 fL (9.4-12.4); Platelet Count 180 K/mcL (140-400); Red Blood Count 4.26 M/mcL (3.82-4.97); Red Cell Distribution Width 13.1 % (11.5-14.5); White Blood Count 8.2 K/mcL (4.3-11.1)
[2018-12-13 05:55] LABS: % Iron Saturation 5 % (15-50); BUN/Creatinine Ratio 17 (6-26); Blood Urea Nitrogen 15 mg/dL (8-23); Calcium 8.6 mg/dL (8.6-10.3); Carbon Dioxide 27 mEq/L (23-29); Chloride 105 mEq/L (98-107); Glucose 157 mg/dL (70-105); Iron 14 mcg/dL (50-170); Magnesium 2.1 mg/dL (1.6-2.6); Osmolality,Calculated 298 (280-300); Potassium 4.5 mEq/L (3.5-5.1); Sodium 142 mEq/L (136-145); Transferrin 209 mg/dL (203-362); eGFR For African Americans > 60 (> 60); eGFR For Non-African Americans > 60 (> 60)
[2018-12-13] MEDS: Gabapentin 300 MG CAPSULE PO SCH ×3 (07:35→20:00)
[2018-12-13] MEDS: Metoprolol XL (24 HR) Succ 25 MG TAB.ER.24H PO SCH (07:35)
[2018-12-13] MEDS: Famotidine 20 MG TABLET PO SCH ×2 (07:35→20:00)
[2018-12-13] MEDS: Lactobacillus 1 EACH CAP.SPRINK PO SCH ×2 (07:35→20:00)
[2018-12-13] MEDS: Sennosides/Docusate Sodium TABLET PO SCH ×2 (07:35→20:00)
[2018-12-13] MEDS: (Linaclotide [Linzess] 145 MCG) PO SCH (07:38)
[2018-12-13] MEDS ORDERED: Iron Sucrose Complex 400 MG in 0.9 % Sodium Chloride 250 ML IVPB ONE (08:47)
--- NOTE | 2018-12-13 08:53 | Cardiothoracic Progress Note ---
Date of Encounter: 12/13/18 Time of Encounter: 08:50 - Assessment and plan (1) Cancer of upper lobe of left lung Current Visit: Yes Status: Acute The assessment and plan as outlined above was discussed with the patient and/or family members who expressed understanding and agreement. All questions were answered. no changes in chest tube management stop ivf (2) Postoperative atrial fibrillation Current Visit: Yes Status: Acute The assessment and plan as outlined above was discussed with the patient and/or family members who expressed understanding and agreement. All questions were answered. change amio to po (3) COPD (chronic obstructive pulmonary disease) with emphysema Current Visit: No Status: Chronic The assessment and plan as outlined above was discussed with the patient and/or family members who expressed understanding and agreement. All questions were answered. c continue current mediations Qualifiers: Emphysema type: panlobular Qualified Code(s): J43.1 - Panlobular emphysema (4) Iron deficiency anemia Current Visit: No Status: Chronic The assessment and plan as outlined above was discussed with the patient and/or family members who expressed understanding and agreement. All questions were answered. give iron today and tomorrow Qualifiers: Iron deficiency anemia type: inadequate dietary iron intake Qualified Code(s): D50.8 - Other iron deficiency anemias Vital Signs, Last 4 Hours Temp Pulse Resp BP Pulse Ox 12/13/18 07:24 18 98 12/13/18 07:07 99.1 F 79 18 93/65 98 12/13/18 07:00 81 93/65 12/13/18 06:00 79 96/59 12/13/18 05:00 80 110/59 Oxgyen Flow Rate Oxygen Flow Rate (LPM) 2 Weight 12/11/18 12/12/18 12/13/18 23:59 23:59 23:59 Weight 73.936 kg 75.4 kg - Physical Examination General: Conversant, No Apparent Distress, Well developed, Well nourished HEENT: Atraumatic, Normocephaly Cardiac: Reg Rate and Rhythm, Normal S1 and S2 Incision: No signs of infection Chest tubes: Minimal drainage, Air leak Lungs: Normal Breath Sounds Neuro: Alert and responsive, No focal deficits noted, Cranial nerves intact - Labs 12/13/18 05:23 12/13/18 05:23 Lab Results, Last 24 hours 12/13/18 12/13/18 05:23 05:23 WBC 8.2 D Hgb 13.4 Hct 42.0 Plt Count 180 Sodium 142 Potassium 4.5 Chloride 105 Carbon Dioxide 27 BUN 15 Creatinine 0.90 Glucose 157 H Calcium 8.6 Magnesium 2.1 - Imaging Chest Xray: image reviewed Consult Discharge Plan - Plan Referrals: Gabriel Palencia MD [Primary Care Provider] -
[2018-12-13] MEDS: *HR* Amiodarone 200 MG TABLET PO SCH (11:40)
[2018-12-13] MEDS: Multivit/Ca/Min/Fe/FA 1 TAB TABLET PO SCH (11:41)
[2018-12-13] MEDS: OLANZapine 5 MG TAB.RAPDIS PO SCH (20:00)
[2018-12-13] MEDS: OLANZapine 10 MG TAB.RAPDIS PO SCH (20:00)
[2018-12-14] MEDS: Ipratropium/Albuterol Neb 3 ML IH SCH ×5 (04:29→20:31)
[2018-12-14] MEDS: *HR* Heparin 5,000 UNIT/ML VIAL SQ SCH ×3 (05:02→20:58)
[2018-12-14] MEDS: Ketorolac 15 MG/ML VIAL IVP SCH ×4 (05:02→23:02)
[2018-12-14] MEDS: (Linaclotide [Linzess] 145 MCG) PO SCH (08:21)
[2018-12-14] MEDS: Gabapentin 300 MG CAPSULE PO SCH ×3 (08:34→20:58)
[2018-12-14] MEDS: Metoprolol XL (24 HR) Succ 25 MG TAB.ER.24H PO SCH (08:34)
[2018-12-14] MEDS: Multivit/Ca/Min/Fe/FA 1 TAB TABLET PO SCH (08:34)
[2018-12-14] MEDS: *HR* HYDROcodone/Acet 5/325 mg TABLET PO PRN ×4 (08:34→23:01)
[2018-12-14] MEDS: Lactobacillus 1 EACH CAP.SPRINK PO SCH ×2 (08:35→20:58)
[2018-12-14] MEDS: Sennosides/Docusate Sodium TABLET PO SCH ×2 (08:35→20:58)
[2018-12-14] MEDS: Famotidine 20 MG TABLET PO SCH ×2 (08:35→20:59)
[2018-12-14] MEDS: *HR* Amiodarone 200 MG TABLET PO SCH (08:35)
[2018-12-14] MEDS ORDERED: Iron Sucrose Complex 400 MG in 0.9 % Sodium Chloride 250 ML IVPB ONE (08:48)
--- NOTE | 2018-12-14 09:00 | Cardiothoracic Progress Note ---
Date of Encounter: 12/14/18 Time of Encounter: 08:57 - Assessment and plan (1) Cancer of upper lobe of left lung Current Visit: Yes Status: Acute The patient is recovering well from her robotic left upper lobe resection. The chest tube has a small air leak with cough. The chest to remain in place until the air leak stops. The assessment and plan as outlined above was discussed with the patient and/or family members who expressed understanding and a greement. All questions were answered. - Subjective Procedure(s) Performed: POD#2 S/P Robotic left upper lobe resection Interval history: The patient remained hemodynamic stable overnight. She is resting comfortably in hospital bed. She has no complaints. Vital Signs, Last 4 Hours Temp Pulse Resp BP Pulse Ox 12/14/18 07:34 17 94 12/14/18 07:08 97.7 F 86 18 111/75 93 Oxgyen Flow Rate Oxygen Flow Rate (LPM) 2 Clinical Data, last 8 Hours Output, Chest Tube Drainage 90 Amount [Left Lateral Chest] Output, Urine Amount 400 Weight 12/12/18 12/13/18 12/14/18 23:59 23:59 23:59 Weight 73.936 kg 75.4 kg 76 kg - Physical Examination General: Conversant, No Apparent Distress Neck: No JVD, Normal carotid pulses Cardiac: Reg Rate and Rhythm, Normal S1 and S2, No Murmur Incision: No signs of infection, Dry/intact dressing Chest tubes: Minimal drainage, Air leak Lungs: Normal Breath Sounds, No Wheeze, Rales, Rhonchi Neuro: Alert and responsive, No focal deficits noted Vascular: Normal capillary refill Musculoskeletal: No Chest Wall Tenderness Extremities: No Clubbing, No Cyanosis, No Edema - Labs 12/13/18 05:23 12/13/18 05:23 - Imaging Chest Xray: image reviewed (No pneumothorax.) Consult Discharge Plan - Plan Additional Instructions: Please go to Out Patient testing on 2018 around 0910AM to get an x-ray done before you go see Dr. Olmedo. The office is sending the order over to out patient testing at the [facility]. Referrals: [facility] [place] [Primary Care Provider] - 12/20/18 10:30 am Marco Antonio Olmedo MD [Partnered Physician] - 12/30/18 10:10 am
[2018-12-14] MEDS: OLANZapine 10 MG TAB.RAPDIS PO SCH (20:58)
[2018-12-14] MEDS: OLANZapine 5 MG TAB.RAPDIS PO SCH (20:58)
[2018-12-15] MEDS: Ipratropium/Albuterol Neb 3 ML IH SCH ×7 (00:10→23:39)
[2018-12-15] MEDS: *HR* Heparin 5,000 UNIT/ML VIAL SQ SCH ×3 (05:02→20:40)
[2018-12-15] MEDS: Ketorolac 15 MG/ML VIAL IVP SCH ×4 (05:02→23:36)
[2018-12-15] MEDS: Metoprolol XL (24 HR) Succ 25 MG TAB.ER.24H PO SCH (08:35)
[2018-12-15] MEDS: Multivit/Ca/Min/Fe/FA 1 TAB TABLET PO SCH (08:35)
[2018-12-15] MEDS: Sennosides/Docusate Sodium TABLET PO SCH ×2 (08:35→20:39)
[2018-12-15] MEDS: Lactobacillus 1 EACH CAP.SPRINK PO SCH ×2 (08:35→20:39)
[2018-12-15] MEDS: (Linaclotide [Linzess] 145 MCG) PO SCH (08:35)
[2018-12-15] MEDS: Famotidine 20 MG TABLET PO SCH ×2 (08:35→20:40)
[2018-12-15] MEDS: *HR* Amiodarone 200 MG TABLET PO SCH (08:35)
[2018-12-15] MEDS: Gabapentin 300 MG CAPSULE PO SCH ×3 (08:35→20:39)
--- NOTE | 2018-12-15 09:15 | Cardiothoracic Progress Note ---
Date of Encounter: 12/15/18 Time of Encounter: 09:13 - Assessment and plan (1) Cancer of upper lobe of left lung Current Visit: Yes Status: Acute The patient is recovering well from her robotic left upper lobe resection. The chest tube has a small air leak with cough. The chest to remain in place until the air leak stops. The assessment and plan as outlined above was discussed with the patient and/or family members who expressed understanding and a greement. All questions were answered. - Subjective Procedure(s) Performed: POD#3 S/P Robotic left upper lobe resection Interval history: The patient remained hemodynamically stable overnight. She is resting comfortably in hospital bed. She has no complaints. Vital Signs, Last 4 Hours Temp Pulse Resp BP Pulse Ox 12/15/18 07:41 16 94 12/15/18 07:02 97.9 F 111 18 111/75 96 Oxgyen Flow Rate Oxygen Flow Rate (LPM) 2 Clinical Data, last 8 Hours Output, Chest Tube Drainage 30 Amount [Left Lateral Chest] Output, Chest Tube Drainage 5 Amount [Left Lateral Chest] Output, Urine Amount 300 Output, Urine Amount 200 Weight 12/13/18 12/14/18 12/15/18 23:59 23:59 23:59 Weight 75.4 kg 76 kg 77.1 kg - Physical Examination General: Conversant, No Apparent Distress Neck: No JVD, Normal carotid pulses Cardiac: Reg Rate and Rhythm, Normal S1 and S2, No Murmur Incision: No signs of infection, Dry/intact dressing Chest tubes: Minimal drainage, Air leak (With cough) Lungs: Normal Breath Sounds, No Wheeze, Rales, Rhonchi Neuro: Alert and responsive, No focal deficits noted Vascular: Normal capillary refill Extremities: No Clubbing, No Cyanosis, No Edema - Labs 12/13/18 05:23 12/13/18 05:23 - Imaging Chest Xray: image reviewed (No pneumothorax.) Consult Discharge Plan - Plan Additional Instructions: Please go to Out Patient testing on 2018 around 0910AM to get an x-ray done before you go see Dr. Olmedo. The office is sending the order over to out patient testing at the [facility]. [place] [facility] [place] [Primary Care Provider] - 12/20/18 10:30 am Marco Antonio Olmedo MD [Partnered Physician] - 12/30/18 10:10 am
[2018-12-15] MEDS: *HR* HYDROcodone/Acet 5/325 mg TABLET PO PRN (15:38)
[2018-12-15] MEDS: OLANZapine 5 MG TAB.RAPDIS PO SCH (20:39)
[2018-12-15] MEDS: OLANZapine 10 MG TAB.RAPDIS PO SCH (20:39)
[2018-12-16] MEDS: Ipratropium/Albuterol Neb 3 ML IH SCH ×5 (04:36→20:51)
[2018-12-16] MEDS: *HR* Heparin 5,000 UNIT/ML VIAL SQ SCH ×3 (06:08→20:59)
[2018-12-16] MEDS: Ketorolac 15 MG/ML VIAL IVP SCH ×3 (06:08→17:57)
[2018-12-16] MEDS: *HR* Amiodarone 200 MG TABLET PO SCH (07:56)
[2018-12-16] MEDS: Famotidine 20 MG TABLET PO SCH ×2 (07:56→20:58)
[2018-12-16] MEDS: Metoprolol XL (24 HR) Succ 25 MG TAB.ER.24H PO SCH (07:56)
[2018-12-16] MEDS: Gabapentin 300 MG CAPSULE PO SCH ×3 (07:56→20:58)
[2018-12-16] MEDS: Multivit/Ca/Min/Fe/FA 1 TAB TABLET PO SCH (07:57)
[2018-12-16] MEDS: Lactobacillus 1 EACH CAP.SPRINK PO SCH ×2 (07:57→20:58)
[2018-12-16] MEDS: Sennosides/Docusate Sodium TABLET PO SCH ×2 (07:57→20:58)
[2018-12-16] MEDS: (Linaclotide [Linzess] 145 MCG) PO SCH (07:57)
--- NOTE | 2018-12-16 08:56 | Cardiothoracic Progress Note ---
Date of Encounter: 12/16/18 Time of Encounter: 08:48 - Assessment and plan (1) Cancer of upper lobe of left lung Current Visit: Yes Status: Acute The patient is recovering well from her robotic left upper lobe resection. The chest tube has a small air leak with cough. The chest tube will remain in place until the air leak stops. The assessment and plan as outlined above was discussed with the patient and/or family members who expressed understanding and agreement. All questions were answered. - Subjective Procedure(s) Performed: POD#4 S/P Robotic left upper lobe resection Interval history: The patient remained hemodynamically stable overnight. She is resting comfortably in hospital bed. She has no complaints. Vital Signs, Last 4 Hours Temp Pulse Resp BP Pulse Ox 12/16/18 07:45 78 12/16/18 07:40 18 97 12/16/18 07:18 97.7 F 75 18 121/77 94 Oxgyen Flow Rate Oxygen Flow Rate (LPM) 2 Clinical Data, last 8 Hours Output, Chest Tube Drainage 70 Amount [Left Lateral Chest] Output, Chest Tube Drainage 0 Amount [Left Lateral Chest] Output, Urine Amount 220 Weight 12/14/18 12/15/18 12/16/18 23:59 23:59 23:59 Weight 76 kg 77.1 kg 79.7 kg - Physical Examination General: Conversant, No Apparent Distress Neck: No JVD, Normal carotid pulses Cardiac: Reg Rate and Rhythm, Normal S1 and S2, No Murmur Incision: No signs of infection, Dry/intact dressing Chest tubes: Minimal drainage, Air leak (Air leak with cough) Lungs: Normal Breath Sounds, No Wheeze, Rales, Rhonchi Neuro: Alert and responsive, No focal deficits noted Vascular: Normal capillary refill Skin: Other (Small amount of left posterior chest all crepitus.) Extremities: No Clubbing, No Cyanosis, No Edema - Labs 12/13/18 05:23 12/13/18 05:23 Consult Discharge Plan - Plan Additional Instructions: Please go to Out Patient testing on 2018 around 0910AM to get an x-ray done before you go see Dr. Olmedo. The office is sending the order over to out patient testing at the [facility]. [place] [facility] [place] [Primary Care Provider] - 12/20/18 10:30 Marco Antonio Morales MD [Partnered Physician] - 12/30/18 10:10 am
[2018-12-16] MEDS: OLANZapine 5 MG TAB.RAPDIS PO SCH (20:58)
[2018-12-16] MEDS: OLANZapine 10 MG TAB.RAPDIS PO SCH (20:58)
[2018-12-17] MEDS: Ketorolac 15 MG/ML VIAL IVP SCH ×4 (00:03→16:40)
[2018-12-17] MEDS: *HR* HYDROcodone/Acet 5/325 mg TABLET PO PRN ×3 (00:03→20:49)
[2018-12-17] MEDS: Ipratropium/Albuterol Neb 3 ML IH SCH ×7 (00:38→23:42)
[2018-12-17] MEDS: *HR* Heparin 5,000 UNIT/ML VIAL SQ SCH ×3 (05:10→20:49)
[2018-12-17] MEDS: Famotidine 20 MG TABLET PO SCH ×2 (07:39→20:49)
[2018-12-17] MEDS: Gabapentin 300 MG CAPSULE PO SCH ×3 (07:39→20:49)
[2018-12-17] MEDS: Lactobacillus 1 EACH CAP.SPRINK PO SCH ×2 (07:39→20:49)
[2018-12-17] MEDS: Multivit/Ca/Min/Fe/FA 1 TAB TABLET PO SCH (07:39)
[2018-12-17] MEDS: *HR* Amiodarone 200 MG TABLET PO SCH (07:39)
[2018-12-17] MEDS: Metoprolol XL (24 HR) Succ 25 MG TAB.ER.24H PO SCH (07:39)
[2018-12-17] MEDS: Sennosides/Docusate Sodium TABLET PO SCH ×2 (07:39→20:49)
[2018-12-17] MEDS: (Linaclotide [Linzess] 145 MCG) PO SCH (07:40)
--- NOTE | 2018-12-17 10:08 | Cardiothoracic Progress Note ---
Date of Encounter: 12/17/18 Time of Encounter: 10:07 - Assessment and plan (1) Cancer of upper lobe of left lung Current Visit: Yes Status: Acute The assessment and plan as outlined above was discussed with the patient and/or family members who expressed understanding and agreement. All questions were answered. no changes in chest tube management (2) Postoperative atrial fibrillation Current Visit: Yes Status: Acute The assessment and plan as outlined above was discussed with the patient and/or family members who expressed understanding and agreement. All questions were answered. sinus and stable (3) COPD (chronic obstructive pulmonary disease) with emphysema Current Visit: No Status: Chronic The assessment and plan as outlined above was discussed with the patient and/or family members who expressed understanding and agreement. All questions were answered. c continue current mediations Qualifiers: Emphysema type: panlobular Qualified Code(s): J43.1 - Panlobular emphysema (4) Iron deficiency anemia Current Visit: No Status: Chronic The assessment and plan as outlined above was discussed with the patient and/or family members who expressed understanding and agreement. All questions were answered. give iron today and tomorrow Qualifiers: Iron deficiency anemia type: inadequate dietary iron intake Qualified Code(s): D50.8 - Other iron deficiency anemias Vital Signs, Last 4 Hours Temp Pulse Resp BP Pulse Ox 12/17/18 07:49 18 96 12/17/18 07:45 85 12/17/18 07:25 97.9 F 76 18 101/66 96 Oxgyen Flow Rate Oxygen Flow Rate (LPM) 2 Clinical Data, last 8 Hours Output, Chest Tube Drainage 15 Amount [Left Lateral Chest] Output, Chest Tube Drainage 30 Amount [Left Lateral Chest] Output, Urine Amount 225 Weight 12/15/18 12/16/18 12/17/18 23:59 23:59 23:59 Weight 77.1 kg 79.7 kg 78.1 kg - Physical Examination General: Conversant, No Apparent Distress, Well developed, Well nourished HEENT: Atraumatic, Normocephaly Cardiac: Reg Rate and Rhythm, Normal S1 and S2, No Murmur Incision: No signs of infection, Dry/intact dressing Chest tubes: Minimal drainage, Air leak Lungs: Normal Breath Sounds Neuro: Alert and responsive, No focal deficits noted, Cranial nerves intact, Motor nerves intact Vascular: Normal capillary refill Abdomen: Soft, Non-tender Extremities: No Clubbing, No Cyanosis - Labs 12/13/18 05:23 12/13/18 05:23 Consult Discharge Plan - Plan Additional Instructions: Please go to Out Patient testing on 2018 around 0910AM to get an x-ray done before you go see Dr. Olmedo. The office is sending the order over to out patient testing at the main hospital. Referrals: Gabriel Palencia MD [Primary Care Provider] - 12/20/18 10:30 am Marco Antonio Olmedo MD [Partnered Physician] - 12/30/18 10:10 am
--- NOTE | 2018-12-17 10:09 | Physician Discharge Referral ---
Home Health/Hosp Referral Info Transfer to: Home Health Attending Provider: diego Provider in Charge Post Discharge: PCP - Diagnosis (1) Cancer of upper lobe of left lung Priority: Primary Status: Acute (2) Postoperative atrial fibrillation Priority: Primary Status: Acute (3) COPD (chronic obstructive pulmonary disease) with emphysema Priority: Secondary Status: Chronic (4) Iron deficiency anemia Priority: Secondary Status: Chronic - Respiratory Orders Smoking Cessation: Smoking cessation has been advised. For more information, call the [place] Tobacco Quit Line at 9-598-RDTM-NOW. - Dressing/Wound Care Site: dry dressing every other day - Diet/Nutrition Diet/Nutrition Orders: Regular - Activity Activity Orders: Ambulate - Services Needed Following services are medically necessary services: Nursing - Transfer Medications Home Medications: Gabapentin [Neurontin] 300 mg PO TID 07/23/16 [History] Glucosamn/[place]n/C/Mn/[place] [[facility]vs Glucosamine Chondroit Cplt] 1 cap PO TID 07/23/16 [History] OLANZapine [Zyprexa] 5 mg PO HS 07/23/16 [History] [place]-3/Dha/Epa/Fish Oil [Fish Oil 1,000 mg Softgel] 1 each PO BID 07/23/16 [History] Terbutaline [Brethine] 2.5 mg PO TID 07/23/16 [History] Bifidobacterium Infantis [Align] 4 mg PO DAILY 07/11/17 [History] Tizanidine HCl [Zanaflex] 4 mg PO TID PRN 07/11/17 [History] Albuterol Sulfate [Ventolin Hfa] 2 puff IH Q6H PRN 06/30/18 [History] Calcium Carbonate [Calcium] 500 mg PO BID 06/30/18 [History] Cholecalciferol (Vitamin D3) [Vitamin D3] 800 unit PO BID 06/30/18 [History] Guaifenesin [Mucinex] 600 mg PO BID 06/30/18 [History] OLANZapine [Zyprexa] 20 mg PO HS 06/30/18 [History] Omeprazole [PriLOSEC] 20 mg PO DAILY 06/30/18 [History] Tiotropium [place] [Spiriva Respimat] 2 puff IH DAILY 06/30/18 [History] Budesonide/Formoterol 160/4.5 [Symbicort 160/4.5] 2 puff IH BIDR #1 inh 07/01/18 [Rx] Linaclotide [Linzess] 145 mcg PO DAILY 12/12/18 [History] Trazodone HCl 200 mg PO HS 12/12/18 [History] Allergies/Adverse Reactions: Allergy/AdvReac Type Severity Reaction Status Date / Time aripiprazole [From Abilify] AdvReac Hallucinati Verified 12/12/18 10:15 ng Certification: Further, I certify that my clinical findings support that this patient is homebound (i.e. absences from home require considerable and taxing effort and are for medical reasons or cheondoism services or infrequently or short duration when for other reasons) because: Homebound Reason: Patient requires assistance of a person or device to safely leave home, Absences from home are contraindicated except to recieve medical care, Post-surgery restriction and or conditions limit ability to leave home, Leaving home requires considerable and taxing effort due to condition, Altered mental status requiring supervision when leaving home, Severity of cardiac or pulmonary status limits activity tolerance Attestation: My signature below is to certify that this patient is under my care and that I, or nurse practitioner, or a physician's anesthetic assistant working with me, has a [id number] encounter with this patient.
[2018-12-17] MEDS: OLANZapine 10 MG TAB.RAPDIS PO SCH (20:49)
[2018-12-17] MEDS: OLANZapine 5 MG TAB.RAPDIS PO SCH (20:49)
[2018-12-18] MEDS: Ipratropium/Albuterol Neb 3 ML IH SCH ×4 (04:22→16:16)
[2018-12-18] MEDS: *HR* HYDROcodone/Acet 5/325 mg TABLET PO PRN (04:41)
[2018-12-18] MEDS: *HR* Heparin 5,000 UNIT/ML VIAL SQ SCH ×2 (04:42→14:16)
[2018-12-18] MEDS: Metoprolol XL (24 HR) Succ 25 MG TAB.ER.24H PO SCH (08:44)
[2018-12-18] MEDS: *HR* Amiodarone 200 MG TABLET PO SCH (08:44)
[2018-12-18] MEDS: Lactobacillus 1 EACH CAP.SPRINK PO SCH (08:44)
[2018-12-18] MEDS: Multivit/Ca/Min/Fe/FA 1 TAB TABLET PO SCH (08:44)
[2018-12-18] MEDS: Sennosides/Docusate Sodium TABLET PO SCH (08:44)
[2018-12-18] MEDS: Famotidine 20 MG TABLET PO SCH (08:45)
[2018-12-18] MEDS: Gabapentin 300 MG CAPSULE PO SCH ×2 (08:45→14:16)
[2018-12-18 11:33] VITALS: BP 103/75
--- NOTE | 2018-12-18 12:41 | Discharge Summary ---
Orders not resulted at time of discharge: Pending orders 12/12/18 11:48 Surgical Pathology [PTH] Stat Date of Encounter: 12/18/18 Time of Encounter: 12:39 - Discharge Diagnosis (1) Cancer of upper lobe of left lung Priority: Primary Status: Acute (2) Postoperative atrial fibrillation Priority: Primary Status: Acute (3) COPD (chronic obstructive pulmonary disease) with emphysema Priority: Secondary Status: Chronic Qualifiers: Emphysema type: panlobular Qualified Code(s): J43.1 - Panlobular emphysema (4) Iron deficiency anemia Priority: Secondary Status: Chronic Qualifiers: Iron deficiency anemia type: inadequate dietary iron intake Qualified Code(s): D50.8 - Other iron deficiency anemias - Hospital Course Hospital course: Ms. Saleh is a 63 year old female - Time Spent with Patient Total time spent providing and/or coordinating discharge services: - Discharge Medications Prescriptions: No Action Gabapentin [Neurontin] 300 mg PO TID OLANZapine [Zyprexa] 5 mg PO HS Terbutaline [Brethine] 2.5 mg PO TID Glucosamn/[place]/C/Mn/[place] [[facility] Glucosamine Chondroit Cplt] 1 cap PO TID [place]-3/Dha/Epa/Fish Oil [Fish Oil 1,000 mg Softgel] 1 each PO BID Tizanidine HCl [Zanaflex] 4 mg PO TID PRN PRN Reason: Spasms Bifidobacterium Infantis [Align] 4 mg PO DAILY OLANZapine [Zyprexa] 20 mg PO HS Albuterol Sulfate [Ventolin Hfa] 2 puff IH Q6H PRN PRN Reason: Shortness Of Breath Guaifenesin [Mucinex] 600 mg PO BID Calcium Carbonate [Calcium] 500 mg PO BID Omeprazole [PriLOSEC] 20 mg PO DAILY Cholecalciferol (Vitamin D3) [Vitamin D3] 800 unit PO BID Tiotropium [place] [Spiriva Respimat] 2 puff IH DAILY Budesonide/Formoterol 160/4.5 [Symbicort 160/4.5] 2 puff IH BIDR #1 inh Linaclotide [Linzess] 145 mcg PO DAILY Trazodone HCl 200 mg PO HS Home Medications: Gabapentin [Neurontin] 300 mg PO TID 07/23/16 [History] Glucosamn/[place]/C/Mn/[place] [[facility] Glucosamine Chondroit Cplt] 1 cap PO TID 07/23/16 [History] OLANZapine [Zyprexa] 5 mg PO HS 07/23/16 [History] [place]-3/Dha/Epa/Fish Oil [Fish Oil 1,000 mg Softgel] 1 each PO BID 07/23/16 [History] Terbutaline [Brethine] 2.5 mg PO TID 07/23/16 [History] Bifidobacterium Infantis [Align] 4 mg PO DAILY 07/11/17 [History] Tizanidine HCl [Zanaflex] 4 mg PO TID PRN 07/11/17 [History] Albuterol Sulfate [Ventolin Hfa] 2 puff IH Q6H PRN 06/30/18 [History] Calcium Carbonate [Calcium] 500 mg PO BID 06/30/18 [History] Cholecalciferol (Vitamin D3) [Vitamin D3] 800 unit PO BID 06/30/18 [History] Guaifenesin [Mucinex] 600 mg PO BID 06/30/18 [History] OLANZapine [Zyprexa] 20 mg PO HS 06/30/18 [History] Omeprazole [PriLOSEC] 20 mg PO DAILY 06/30/18 [History] Tiotropium [place] [Spiriva Respimat] 2 puff IH DAILY 06/30/18 [History] Budesonide/Formoterol 160/4.5 [Symbicort 160/4.5] 2 puff IH BIDR #1 inh 07/01/18 [Rx] Linaclotide [Linzess] 145 mcg PO DAILY 12/12/18 [History] Trazodone HCl 200 mg PO HS 12/12/18 [History] Allergies/Adverse Reactions: Allergy/AdvReac Type Severity Reaction Status Date / Time aripiprazole [From Abilify] AdvReac Hallucinati Verified 12/12/18 10:15 ng Date of admission: 12/12/18 14:27 Primary care physician: Gabriel Palencia MD Consults: 12/17/18 16:36 Consult to Tr[employer] Bullet Section Supervisor [CONS] Routine Reason for SW Consult: discharge planning possible home health Procedure(s) Performed: bronchoscopy, robotic left upper lobectomy, lymph node dissection Discharging clinician: Marco Antonio Olmedo Anticipated date of discharge: 12/18/18 Physical Examination Vital Signs, Last 4 Hours Temp Pulse Resp BP Pulse Ox 12/18/18 12:05 18 93 12/18/18 11:29 97.8 F 76 18 103/75 95 General: Conversant, No Apparent Distress, Well developed, Well nourished HEENT: Atraumatic, Normocephaly Cardiac: Reg Rate and Rhythm, Normal S1 and S2 Lungs: Normal Breath Sounds Neuro: Alert and responsive, No focal deficits noted Abdomen: Soft, Non-tender - Patient Status Disposition: Home Health Service Condition: Good Functional capacity at discharge: independent ambulation Overall status at discharge: patient is progressing back to baseline - Discharge Instructions Follow Up With: Gabriel Palencia MD [Primary Care Provider] - 12/27/18 10:30 am Marco Antonio Olmedo MD [Partnered Physician] - 12/30/18 10:10 am - Diet and Activity Activity: no driving for four weeks, no lifting greater than 10 pounds for eight weeks, other (changes gauzes every other day. keep dressing clean. ) Diet: advance to your usual diet
== END 2018-12-18 16:47 | disposition home health service (06) | DRG 121 ==
LOC: SAMDAY 09:53 → 2NNU 14:27
PROVIDERS: ADMIT Thoracic Surgery (Cardiothoracic Vascular Surgery); ATTEND Thoracic Surgery (Cardiothoracic Vascular Surgery)